=== PATIENT | female | born 1980 | race Two or more races ===

== ENCOUNTER 2023-11-28 10:04 | Outpatient (AMB) | payer MEDICAID, SELFPAY ==
--- NOTE | 2023-11-28 10:13 | A.OFFVIS_ITS ---
Intake Vital Signs 3 11/28/23 10:24 Height 4 ft 11 in Weight 205 lb BMI 41.4 BP 112/75 Blood Pressure Location Lt brachial Position Sitting Pulse 73 Intake Visit Reasons: skin lesion of the shoulder Intake Note: Patient is seen in office for evaluation and treatment of a skin lesion of the shoulder. Pt c/o: lesion on the right axilla, onset 10yrs, discharge in the past, currently is painful, hot to the touch, redness, currently not on antibiotics Enterprise Resource Planning Consultant Required: Yes Enterprise Resource Planning Consultant Language: Danish Allergies No Known Allergies Allergy (Verified 11/28/23 10:23) Medication List - Last Reconciled 11/28/23 by Braeden Powell MD Unobtainable HPI HPI Comments 2 History of Present Illness0 Details 43-year-old female patient presenting fo r evaluation of recurring infections in the right axilla. Patient's history was obtained from her who was present during the visit. He reports that she has had multiple procedures in the right axilla to drain infections in the ED. She is being followed by a quill machine tender but has not been placed on a biologic medication. She reports having used Hibiclens in the past and apparently is still using Hibiclens today but feels that this has not helped. She is requesting excision of the chronically infected area of hidradenitis. She denies any current infection does note discomfort in the axilla. [facility] Medical History (Updated 11/28/23 @ 10:57 by Braeden Powell MD) Fibromyalgia Vitamin D deficiency Hidradenitis axillaris Surgical History History of 3 sections Social History Alcohol intake: never Patient Tobacco Use Status: Current everyday Tobacco user Review of Systems Const All systems reviewed & are unremarkable except as noted in HPI and below Physical Exam Vital Signs: Last Vital Signs Pulse 73 11/28/23 10:24 BP 112/75 11/28/23 10:24 BMI result Body Mass Index 41.4 Const General: cooperative and no acute distress Nutritional Appearance: well nourished Orientation/consciousness: patient oriented x3 Limitations: no limitations HEENT Head: Yes normocephalic and Yes atraumatic Ears: hearing grossly normal bilaterally Chest Other: Right axilla with an area measuring approximately 2 by 4 cm of hidradenitis with chronic scarring but no evidence of acute abscess at this time. Site is tender to palpation. Several open sinuses are identified, located mainly in the anterior axilla. Chest/axillae images: 2 1. Site of chronic scarring, hidradenitis Resp Effort & Inspection: normal respiratory effort, no audible wheezes, no cough and no respiratory distress Cardio Jugular venous distension: no JVD GI Inspection: Yes normal to inspection Skin Other: Warm, dry, no rash Neuro General: patient oriented x3 Extrem Other: Swelling in right hand with slight erythema when compared to the left hand. Assessment & Plan Assessment & Plan (1) Hidradenitis axillaris: Code(s): L73.2 - Hidradenitis suppurativa Plan 43-year-old female patient presenting for evaluation of chronic right axillary hidradenitis with multiple previous drainage procedures. Patient is requesting excision of this area of chronic hidradenitis. We discussed the procedure in detail including the risks of nonhealing wound, persistent pain, and recurrent infections in other areas of the axilla. After discussion of the procedure, risks, and alternatives, she consents to an excision of the right axillary hidradenitis. This will be scheduled as a short-stay surgery. Coding Level of Care Code New Pt Level 4 (81391) Diagnoses Hidradenitis axillaris L73.2
[2023-11-28 10:24] VITALS: BP 112/75; PULSE 73; BMI 41.4
== END 2023-11-28 10:44 | disposition home or self-care (01) ==
PROVIDERS: PCP Physician Assistant Medical; Visit Provider Surgery
DX: L73.2 Hidradenitis suppurativa (principal)
CPT/HCPCS: 99204

== ENCOUNTER → 2023-11-28 10:04 | Outpatient (BNVA) | payer MEDICAID, SELFPAY | PROVIDERS: PCP Physician Assistant Medical; Visit Provider Surgery | DX: L73.2 Hidradenitis suppurativa (principal) | CPT/HCPCS: 99202 ==

== ENCOUNTER 2024-02-28 19:06 | Emergency (ER) | payer MEDICAID, SELFPAY ==
--- NOTE | ~2024-02-28 | CT_ITS ---
EXAMINATION: CT ABDOMEN AND PELVIS WITHOUT CONTRAST CLINICAL INFORMATION: Abdominal pain. Vomiting. COMPARISON: None available. TECHNIQUE: Multidetector volumetric imaging was performed from the superior aspect of the liver through the pubic symphysis. Sagittal and coronal reformatted images were obtained on the technologist's workstation. This CT examination was performed using dose optimization techniques as appropriate, variously including the following: *Automated exposure control *Adjustment of mA and/or kV according to patient size (this includes techniques or standardized protocols for targeted exams where dose is matched to indication/reason for exam; i.e. extremities or head) *Use of iterative reconstruction technique DLP: 692 mGy-cm FINDINGS: LUNG BASES: The visualized lung bases are unremarkable. LIVER, GALLBLADDER, AND BILIARY TREE: The liver is normal in size, shape, and attenuation. No focal hepatic lesion or biliary ductal dilatation is present. The gallbladder is physiologically distended. There is a punctate calculus layering dependently within the gallbladder. There is no gallbladder wall thickening or obvious pericholecystic inflammatory changes. PANCREAS: Unremarkable. SPLEEN: Unremarkable. ADRENAL GLANDS: Unremarkable. KIDNEYS AND URETERS: The kidneys are normal in size, shape, and attenuation. No hydronephrosis, hydroureter, or calculi seen. No perinephric stranding. BLADDER: Unremarkable. GASTROINTESTINAL TRACT: The small and large bowel are normal in caliber. There is no pericolonic inflammatory stranding or colonic wall thickening. The appendix is unremarkable. ABDOMINAL WALL: No significant hernia is appreciated. LYMPH NODES: No lymphadenopathy. VASCULAR: Unremarkable. PELVIC VISCERA: Unremarkable. No adnexal mass. OSSEOUS STRUCTURES: Unremarkable. CT/CT abdomen pelvis wo IV con IMPRESSION: No acute intra-abdominal/intrapelvic abnormality. Cholelithiasis. Fleischner guidelines were followed.
[2024-02-28 19:14] VITALS: BP 115/81; PULSE 73; RESP 20; TEMP 36.6; O2SAT 98; BMI 34.7
--- NOTE | 2024-02-28 19:51 | ED.ABDPAIN ---
HPI - Abdominal Pain General Chief Complaint: Abdominal Pain Stated Complaint: lower abd pain/headache Time Seen by Provider: 02/29/24 00:24 Related Data Home Medications ?Medication ?Instructions ?Recorded ?Confirmed Unobtainable 11/28/23 11/28/23 Allergies Allergy/AdvReac Type Severity Reaction Status Date / Time No Known Allergies Allergy Verified 02/28/24 19:20 [facility] Past Medical History Medical History (Updated 03/01/24 @ 12:45 by BEL Parsons) Fibromyalgia Vitamin D deficiency Hidradenitis axillaris Surgical History History of 3 sections Social History Social History Alcohol intake: never Patient Tobacco Use Status: Current everyday Tobacco user Advance Directives: No Advance Directives Information Provided: No Do you have a plan to hurt others: No Plan Physical Exam ED Vital Signs: Vital Signs - 24 hr 02/28/24 19:14 02/28/24 23:21 Temperature 97.8 F Pulse Rate 73 70 Respiratory Rate 20 16 Blood Pressure 115/81 118/75 Pulse Oximetry 98 96 Oxygen Delivery Method Room Air Room Air BMI result Body Mass Index 34.7 Course Course Course Narrative: This is a Rapid Medical Examination (RME) performed by Varun Powell PA-C in triage. Full HPI, ROS, assessment and treatment plan per primary provider in the Main ED. 44-year-old Kinyarwanda speaking female with a history of fibromyalgia, hidradenitis suppurativa who presents to the ER from urgent care for evaluation of abdominal pain, headache, nausea, and vomiting with every time she tries to have any p.o. intake. She reports the pain is in her lower abdomen. She reports also pain radiating to her back. On examination patient is awake, alert, no distress. speaking in complete sentences. abd is nondistended with Right upper quadrant tenderness on examination.No guarding or rebound. lower abdominal tenderness as well. Plan: Labs and CT scan Medical Decision Making Lab Data 02/28/24 19:56 02/28/24 19:56 Labs: Lab Results 02/28/24 Range/Units 19:56 WBC 9.5 (4.8-10.8) X10*3/uL RBC 4.76 (4.20-5.50) X10*6/uL Hgb 13.9 (12.0-16.0) g/dl Hct 40.7 (37.0-47.0) % MCV 85.5 (80.0-98.0) fL MCH 29.2 (27.0-33.0) pg MCHC 34.2 (31.0-35.0) g/dl RDW 13.3 (11.0-16.0) % Plt Count 334 (160-400) X10*3/uL MPV 9.2 L (9.4-12.3) fL Immature Gran % (Auto) 0.4 (0.0-0.4) % Neut % (Auto) 61.6 (45-73) % Lymph % (Auto) 27.7 (20-40) % White % (Auto) 8.2 (2-11) % Eos % (Auto) 1.5 (0-4) % Baso % (Auto) 0.6 (0-2) % Lymph # (Auto) 2.6 (1.2-4.9) X10*3/uL White # (Auto) 0.8 (0.1-1.2) X10*3/uL Eos # (Auto) 0.1 (0.0-0.4) X10*3/uL Baso # (Auto) 0.1 (0.0-0.2) X10*3/uL Abs Immat Gran (auto) 0.04 H (0.00-0.03) X10*3/uL Absolute Neuts (auto) 5.8 (2.0-8.3) x10*3/uL Absolute Nucleated RBC 0.000 (0.0-0.012) X10*3/uL Nucleated RBC % (auto) 0.0 (0.0-0.2) /100WBC Sodium 140 (135-145) mmol/L Potassium 4.0 (3.3-5.1) mmol/L Chloride 105 (96-108) mmol/L Carbon Dioxide 25 (22-29) mmol/L Anion Gap 14 (12-20) BUN 12 (9-16) mg/dL Creatinine 0.63 (0.5-1.4) mg/dL Estim Creat Clear Calc 132.8 Estimated GFR > 60 Random Glucose 76 (60-115) mg/dL Calcium 9.5 (8.4-10.2) mg/dL Magnesium 1.8 (1.6-2.6) mg/dL Total Bilirubin 0.3 (0.0-1.0) mg/dL Direct Bilirubin 0.1 (0.0-0.5) mg/dL AST 15 (5-31) U/L ALT 14 (0-31) U/L Alkaline Phosphatase 64 (39-117) U/L Total Protein 7.3 (6.5-8.0) g/dL Albumin 3.9 (3.5-5.0) g/dL Lipase 13 (8-78) U/L Beta HCG, Quant < 2 mIU/mL Discharge Plan Discharge Clinical Impression: Abdominal pain Patient Disposition: Left W/O Completing Treatment Prescriptions: No Action Unobtainable Discharge Date/Time: 02/29/24 00:33
[2024-02-28 19:59] LABS: MANUAL DIFF FLAG NO
[2024-02-28 20:01] LABS: Basophils Absolute Auto 0.1 X10*3/uL (0.0-0.2); Basophils Percent Auto 0.6 % (0-2); Eosinophils Absolute Auto 0.1 X10*3/uL (0.0-0.4); Eosinophils Percent Auto 1.5 % (0-4); Hematocrit 40.7 % (37.0-47.0); Hemoglobin 13.9 g/dl (12.0-16.0); Imm Gran Abs Auto 0.04 X10*3/uL (0.00-0.03); Imm Gran Pct Auto 0.4 % (0.0-0.4); Lymphocytes Absolute Auto 2.6 X10*3/uL (1.2-4.9); Lymphocytes Percent Auto 27.7 % (20-40); Mean Corpuscular HGB Conc 34.2 g/dl (31.0-35.0); Mean Corpuscular Hemoglobin 29.2 pg (27.0-33.0); Mean Corpuscular Volume 85.5 fL (80.0-98.0); Mean Platelet Volume 9.2 fL (9.4-12.3); Monocytes Absolute Auto 0.8 X10*3/uL (0.1-1.2); Monocytes Percent Auto 8.2 % (2-11); Neutrophils Absolute Auto 5.8 x10*3/uL (2.0-8.3); Neutrophils Percent Auto 61.6 % (45-73); Platelet Count 334 X10*3/uL (160-400); Red Blood Count 4.76 X10*6/uL (4.20-5.50); Red Cell Distribution Width 13.3 % (11.0-16.0); White Blood Count 9.5 X10*3/uL (4.8-10.8)
[2024-02-28 20:23] LABS: Alanine Aminotransferase 14 U/L (0-31); Albumin Level 3.9 g/dL (3.5-5.0); Alkaline Phosphatase 64 U/L (39-117); Anion Gap 14 (12-20); Aspartate Amino Transferase 15 U/L (5-31); Bilirubin Direct 0.1 mg/dL (0.0-0.5); Bilirubin Total 0.3 mg/dL (0.0-1.0); Blood Urea Nitrogen 12 mg/dL (9-16); Calcium 9.5 mg/dL (8.4-10.2); Carbon Dioxide 25 mmol/L (22-29); Chloride 105 mmol/L (96-108); Creatinine Clr Calc Pharmacy 132.8; Estimated Glomerular Filt Rate > 60; Glucose Random 76 mg/dL (60-115); Lipase 13 U/L (8-78); Magnesium 1.8 mg/dL (1.6-2.6); Sodium 140 mmol/L (135-145); Total Protein 7.3 g/dL (6.5-8.0)
[2024-02-28 20:29] LABS: HCG Quantitative < 2 mIU/mL
[2024-02-28 23:21] VITALS: BP 118/75; PULSE 70; RESP 16; O2SAT 96
== END 2024-02-29 00:33 | disposition left against medical advice (07) ==
PROVIDERS: Physician Assistant; Emergency Provider Emergency Medicine; PCP Nurse Practitioner Family
DX: R10.30 Lower abdominal pain, unspecified (principal); R51.9 Headache, unspecified; F17.200 Nicotine dependence, unspecified, uncomplicated
CPT/HCPCS: 36415; 74176; 80048; 80076; 83690; 83735; 84702; 85025; 99283; 99284

== ENCOUNTER 2025-01-27 15:28 | Outpatient (REF) | payer MEDICAID, SELFPAY ==
[2025-01-27 16:44] LABS: Urine Cytology See Pathology rpt
== END 2025-01-27 15:29 | disposition home or self-care (01) ==
LOC: HO.LNP 15:28
PROVIDERS: PCP Nurse Practitioner Family; Visit Provider Nurse Practitioner Family
DX: F17.200 Nicotine dependence, unspecified, uncomplicated (principal); R31.29 Other microscopic hematuria
CPT/HCPCS: 81003; 88112; 99212

== ENCOUNTER 2025-01-27 15:28 | Outpatient (AMB) | payer MEDICAID, SELFPAY ==
--- NOTE | 2025-01-27 15:30 | MHC.OFFVIS ---
Intake Visit Reasons: microscopic hematuria Intake Note: New patient presents today for initial visit for microscopic hematuria Urology Medication:None Blood Thinner:None Antibiotic Allergies:None Carroting Machine Operator Required: Yes Carroting Machine Operator Services: Carroting Machine Operator Present Allergies No Known Allergies Allergy (Verified 01/27/25 21:59) Medication List - Last Reconciled 01/27/25 by CARYN uBrch-HELEN meloxicam 15 mg PO DAILY PRN pantoprazole 40 mg PO DAILY spironolactone 25 mg PO DAILY zolpidem 10 mg PO BEDTIME PRN HPI Comments Details: Hend this is a very pleasant 45-year-old Polish speaking female patient of Dr. Sol who was accompanied by her at today's office visit. She has a past medical history of fibromyalgia, vitamin-D deficiency, and hidradenitis axillars. She presents to the office today as a new patient for microscopic hematuria in the setting of nicotine dependence. In discussion with the patient today she reports having followed up with her PCP at which time recommendations were made for urology referral for further assessment evaluation. In office urinalysis results reviewed with the patient today 2+ microscopic hematuria as well as proteinuria. She does report following up with Nephrology Dr. Craig. When asked she does report a 23 year history of nicotine dependence. She reports typically smoking half a pack daily. We discussed potential causes of microscopic hematuria as well as further workup to include imaging and cystoscopy. She otherwise denies any bothersome urinary issues. She denies urinary urgency, urinary frequency, incontinence, nocturia, hematuria, dysuria, foul smelling urine, changes to urinary stream, flank pain, fever, and or chills. She is happy with her current voiding parameters. In review of patient's chart it appears patient had CT 03/22 however noncontrasted study therefore will order CT urogram for further assessment evaluation. I discussed reasons for blood in the urine may include but are not limited to kidney stones, cancer in the urinary tract, kidney stone disease or inflammatory conditions of the urinary tract. I have discussed workup to include cystoscopy evaluation. All questions were answered. She otherwise offers no other issues or concerns at this time. [facility] Medical History Fibromyalgia Vitamin D deficiency Hidradenitis axillaris Surgical History History of 3 sections Social History Alcohol intake: never Patient Tobacco Use Status: Current everyday Tobacco user Review of Systems Const All systems reviewed & are unremarkable except as noted in HPI and below Physical Exam Const General: cooperative, comfortable, no acute distress, well developed, alert and awake Nutritional Appearance: overweight Orientation/consciousness: patient oriented x3 Limitations: language barrier HEENT Head: Yes normal to inspection Ears: hearing grossly normal bilaterally Eyes General: appearance normal, both eyes and all related structures Neck Neck: Yes normal visual inspection and Yes trachea midline Chest Chest palpation & inspection: normal inspection of the chest Resp Effort & Inspection: normal respiratory effort and able to speak in complete sentences Cardio Rate: regular rate GI Inspection: Yes normal to inspection General: Yes no CVA tenderness Back/Spine/Pelvis Back: no CVA tenderness Skin General skin exam: no rashes or lesions noted Neuro General: patient oriented x3 Extrem General: Yes normal to inspection Psych Appearance: grossly normal and well kempt Mental Status: mental status grossly normal Speech and movement: Normal speech and movement present and Clear speech present Affect: normal affect Attitude: cooperative Thought process: Normal thought process present Thought content: Normal thought content present Insight: Fair insight present (Psych) Judgement: Fair judgement present (Psych) Results AMB Urinalysis, Automated UA Leukoctes 0 Jane/uL Last Edit by Rupa Lee on 01/27/25 16:15 UA Nitrite Negative Last Edit by Rupa Lee on 01/27/25 16:15 UA Urobilinogen 0.2 mg/dL Last Edit by Rupa Lee on 01/27/25 16:15 UA Protein 100 mg/dL Last Edit by Rupa Lee on 01/27/25 16:15 UA pH 5.5 Last Edit by Rupa Lee on 01/27/25 16:15 UA Blood 200 Stefan/uL Last Edit by Rupa Lee on 01/27/25 16:15 UA Specific [place] 1.030 Last Edit by Rupa Lee on 01/27/25 16:15 UA Ketone Negative Last Edit by Rupa Lee on 01/27/25 16:15 UA Bilirubin 0 mg/dL Last Edit by Rupa Lee on 01/27/25 16:15 UA Glucose 0 mg/dL Last Edit by Rupa Lee on 01/27/25 16:15 Results Reviewed Results Reviewed: Laboratory Last Values Urine pH (Auto) 5.5 01/27/25 15:55 Specific [place] (Auto) 1.030 01/27/25 15:55 Urine Protein (Auto) 100 mg/dL 01/27/25 15:55 Glucose (UA)(Auto) 0 mg/dL 01/27/25 15:55 Urine Ketones (Auto) Negative 01/27/25 15:55 Urine Blood (Auto) 200 Stefan/uL 01/27/25 15:55 Urine Nitrite (Auto) Negative 01/27/25 15:55 Urine Bilirubin (Auto) 0 mg/dL 01/27/25 15:55 Urine Urobilinogen (Auto) 0.2 mg/dL 01/27/25 15:55 Leukocyte Esterase (Auto) 0 Jane/uL 01/27/25 15:55 Assessment & Plan Assessment & Plan (1) Microscopic hematuria: Code(s): R31.29 - Other microscopic hematuria Category: Medical (2) Nicotine dependence: Code(s): F17.200 - Nicotine dependence, unspecified, uncomplicated Category: Medical Plan In office urinalysis results reviewed with the patient today; as noted above; will send for urine cytology. She currently denies any bothersome urinary issues or concerns. She reports be happy with current voiding parameters. We discussed potential causes of microscopic hematuria as well as further workup to include imaging and cystoscopy. Will obtain CT urogram for further assessment evaluation. BUN and creatinine ordered for imaging. Discussed, educated, and stressed the importance of limiting/quitting nicotine dependence for overall health and well-being. Continue to follow-up with nephrology as planned. Follow-up next available in office cystoscopy with imaging and labs to be completed prior; or sooner with any issues, concerns, and or questions. Orders: Orders AMB Urinalysis Automated Today Z13.9 - Encounter for screening, unspecified Blood Urea Nitrogen Today F17.200 - Nicotine dependence, unspecified, uncomplicated, R31.29 - Other microscopic hematuria Urine Cytology Today Z13.9 - Encounter for screening, unspecified CT urogram Today R31.0 - Gross hematuria Creatinine Today F17.200 - Nicotine dependence, unspecified, uncomplicated, R31.29 - Other microscopic hematuria Patient Instructions: The patient had an opportunity to ask questions regarding the treatment plan. All questions were answered. Physical exam, labs, and imaging were discussed and reviewed in detail. As well as risks, benefits, and discussion of treatment choices. No major barriers to understanding were identified. The patient expressed understanding and agreement with the above treatment plan. The patient was made aware they should contact our office by phone for worsening of their current condition, the appearance of new symptoms, or with any questions or concerns. Compliance is encouraged with any medications and follow up testing that is ordered. It is a privilege to be allowed the opportunity to participate in? your urological care.? Again, if you have any questions or concerns If you have any questions or concerns please do not hesitate to contact me. The office is [phone]. This note is constructed using voice recognition software. While every effort has been made to ensure accuracy animal keeper errors may have been included. Yours sincerely, POWER Burch Coding Level of Care Code New Pt Level 4 (80431) Diagnoses Microscopic hematuria R31.29 Nicotine dependence F17.200 Time Spent (min) 30
--- OUTSIDE RECORDS SUMMARY | 2025-01-27 17:13 | XMS_ITS | Encounter Summary ---
Author Organization [facility] Address [address] [address] Phone Care Team Providers Care Dependency Director Name Role Phone Yoan Sol Primary Care Provider [phone] Encounter Details Date Type Department Care Team ([facility] Contact Info) Description 07/03/2022 Documentation Only [facility] [address] [place] [address] Heber Tang MD [address] [facility] [place] [place] [address] Social History Tobacco Use Types Packs/Day Years Used Date Smoking Tobacco: Every Day Smokeless Tobacco: Never Alcohol Use Standard Drinks/Week Comments Not Currently 0 (1 standard drink = 0.6 oz pur e alcohol) Comments Unknown Sex and Gender Information Value Date Recorded Sex Assigned at Not on file Legal Sex Female 3:39 PM EDT Gender Identity Not on file Sexual Orientation Not on file documented as of this encounter Plan of Treatment Upcoming Encounters Date Type Department Care Team (Late Contact Info) Description 01/20/2026 1:45 PM EDT Office Visit [facility] [address] [place] [address] Heber Tang MD [address] [facility] [place] [place] [address] documented as of this encounter Visit Diagnoses Not on filedocumented in this encounter Care Teams Dependency Director Relationship Specialty Start Date End Date Yoan Sol FNP [address] [place] [address] PCP - General Nurse Practitioner 01/10/21 documented as of this encounter
--- OUTSIDE RECORDS SUMMARY | 2025-01-27 17:13 | XMS_ITS | Clinical Summary ---
Author Organization [facility] [place], Address [address] [place] [address] [place] [address] Phone Care Team Providers Care Director Day Care Center Name Role Phone Yoan Sol ELECTRIC SHIPYARD OPERATOR Primary Care Provider [phone] [phone] Allergies Active Allergy Reactions Criticality Noted Date Comments Lisinopril Other (see comments) 02/05/2021 Medications acetaminophen (TYLENOL) 500 MG tablet Take 500 mg by mouth every 6 (six) hours 1 Active cholecalciferol (VITAMIN D-3) 25 MCG (1000 UT) capsule Take 2 capsules by mouth 1 (one) time each day 1 Active gabapentin (NEURONTIN) 300 MG capsule Take 300 mg by mouth 2 (two) times a day 1 Active nicotine polacrilex (COMMIT) 4 MG lozenge Use one by mouth every 2 hours as needed for smoking cessation 1 Active mupirocin (BACTROBAN) 2 % ointment 1 Active ketoconazole (NIZORAL) 2 % shampoo 1 Active hydrocortisone 2.5 % cream 1 Active doxycycline (ADOXA) 100 MG tablet 1 Active Ciclopirox 1 % shampoo 1 Active Hibiclens 4 % external liquid 1 Active amoxicillin-cla vulanate (AUGMENTIN) 875-125 MG per tablet 1 Active ammonium lactate (LAC-HYDRIN) 12 % lotion 1 Active clobetasol (TEMOVATE) 0.05 % cream Apply topically 2 (two) times a day 2 Active Diclofenac Sodium 1 % gel APPLY TO AFFECTED AREA TWICE A DAY 2 Active spironolactone (Aldactone) 50 MG tablet Take 0.5 tablets (25 mg total) by mouth 1 (one) time each day 15 tablet 11 4 Active Active Problems Problem Noted Date Diagnosed Date Proteinuria 02/24/2021 Anemia 02/24/2021 Fibromyalgia 01/05/2021 Vitamin D deficiency 11/29/2020 Encounters Date Type Department Care Team Description 01/14/2025 1:45 PM EDT Office Visit [facility] [address] [place] [address] Heber Tang MD Other proteinuria (Primary Dx) 01/11/2025 Telephone [facility] [address] [place] [address] Patsy Saab MA 01/07/2025 Orders Only [facility] [address] [place] [address] Patsy Saab MA Chronic kidney disease, not otherwise specified (Primary Dx); Albuminuria, not otherwise specified from Last 3 Months Immunizations Immunization Administration Dates Next Due PPD Test 08/18/2017 Tdap 03/15/2016 Family History Medical History Relation Comments Diabetes Father Heart failure Maternal Grandmother Heart disease Mother Relation Status Comments Father Maternal Grandmother Mother Social History Tobacco Use Types Packs/Day Years [...] on file Sexual Orientation Not on file Last Filed Vital Signs Vital Sign Reading Time Taken Comments Blood Pressure 108/74 01/14/2025 1:49 PM EDT Pulse - - Temperature - - Respiratory Rate - - Oxygen Saturation - - Inhaled Oxygen Concentration - - Weight - - Height - - Body Mass Index - - Plan of Treatment Upcoming Encounters Date Type Department Care Team (Late st Contact Info) Description 01/20/2026 1:45 PM EDT Office Visit [facility] [place], [address] [facility] [phone] Heber Tang MD [address] [facility] [place] [phone] Health Maintenance Due Date Last Done Comments Hepatitis B Vaccine (1 of 3 - 19+ 3-dose series) 1998 Pneumococcal Vaccine: Peds ( 0 to 5 Years) and At-Risk Patients (6 to 49 Years) (2 of 2 - PCV) 12/12/2019 12/11/2018 Influenza Vaccine (Season Ended) 2025 08/27/20 22, 12/11/2018 Insurance Medicaid [place] Care Teams Director Day Care Center Relationship Specialty Start Date End Date Yoan Sol FNP [address] [place] [address] PCP - General Nurse Practitioner 01/10/21
--- OUTSIDE RECORDS SUMMARY | 2025-01-27 17:13 | XMS_ITS | Encounter Summary ---
Author Organization [facility] Address [address] [place] [address] Phone Care Team Providers Care Nurse Behavioral Health Care Name Role Phone Yoan Sol Primary Care Provider [phone] Encounter Details Date Type Department Care Team (Late Contact Info) Description 12/01/2023 Documentation Only [facility] [address] [place] [address] [place] [address] Social History Tobacco Use Types Packs/Day Years [...] Visit [facility] [address] [place] [address] Heber Tang MD [address] [facility] [place] [address] documented as of this encounter Visit Diagnoses Not on filedocumented in this encounter Care Teams Nurse Behavioral Health Care Relationship Specialty Start Date End Date Yoan Sol FNP [address] [place] [id number] PCP - General Nurse Practitioner 01/10/21 documented as of this encounter
--- OUTSIDE RECORDS SUMMARY | 2025-01-27 17:13 | XMS_ITS | Clinical Summary ---
Author Organization [facility] Address [address] [place] [address] Care Team Providers Care Legal Services Manager Name Role Phone Yoan Sol [facility] Primary Care Prov ider Source Comments PLEASE NOTE, if this patient is a minor, it may be UNLAWFUL to discuss sensitive information that is contained in these records (such as FAMILY PLANNING, MENTAL HEALTH or SUBSTANCE ABUSE) with the minor patient's parent or other person without the patient's specific authorization.[facility] Allergies Active Allergy Reactions Criticality Noted Date Comments Lisinopril Cough 02/05/2021 Medications acetaminophen (TYLENOL) 500 mg tabletIndications: Apical periodontitis Take 1 Tablet by mouth every 6 (six) hours as needed for pain 60 Tablet 2 08/27/20 22 Active zolpidem (AMBIEN) 10 mg tablet TAKE 1 TABLET BY MOUTH EVERY DAY AT BEDTIME NEEDED 03/03/20 23 Active traZODone (DESYREL) 100 mg tablet TAKE 1 TABLET BY MOUTH EVERYDAY AT BEDTIME 03/08/20 23 Active DULoxetine (CYMBALTA) [address] capsule TAKE 1 CAPSULE BY MOUTH AFTER BREAKFAST 03/25/20 23 Active celecoxib (CELEBREX) 200 mg capsuleIndications :Bilateral hand swelling Take 1 Capsule by mouth 2 (two) times daily 180 Capsule 11/11/19 24 Active spironolactone (ALDACTONE) 50 mg tablet Take 25 mg by mouth 12/31/19 24 Active amitriptyline (ELAVIL) 25 mg tablet Take 25 mg by mouth nightly at bedtime as needed for pain 10/23/19 24 Active topiramate (TOPAMAX) 50 mg tablet Take 50 mg by mouth 2 (two) times daily as needed 09/24/20 23 Active nicotine (NICODERM, STEP 3) 7 mg/24 hr patchIndications:T obacco use Place 1 Patch onto the skin once daily (every 24 hours) 14 Patch 02/03/20 24 Active nicotine (NICODERM, STEP 2) 14 mg/24 hr patchIndications:T obacco use Place 1 Patch onto the skin once daily (every 24 hours) 14 Patch 02/03/20 24 Active nicotine (NICODERM, STEP 1) 21 mg/24 hr patchIndications:T obacco use Place 1 Patch onto the skin once daily (every 24 hours) 42 Patch 02/03/20 24 Active MISCELLANEOUS MEDICAL SUPPLY MISC Knee high compression stockings 15-20mm Hg to be used daily x 99 years dispense 2 pairs 3 Each 02/03/20 24 Active MISCELLANEOUS MEDICAL SUPPLY MISCIndications:Bi lateral carpal tunnel syndrome Bilateral wrist brace DXcarpal tunnel 2 Each 02/03/20 24 Active ondansetron ODT (ZOFRAN-ODT) 4 mg disintegrating tablet DISSOLVE 1 TABLET IN MOUTH EVERY 8 HOURS NEEDED FOR NAUSEA/VOMITING FOR UP TO 10 DAYS Authorized by: DAMARIS CAMPBELL 03/03/20 24 Active lidocaine (LIDODERM) 5 % patch APPLY 1 PATCH DAILY X14 DAYS REMOVE PATCHES AFTER 12 HOURS Authorized by: DAMARIS CAMPBELL 02/06/20 24 Active fluocinonide (LIDEX) 0.05 % cream APPLY TO HANDS TWICE A DAY NEEDED DECREASE SYMPTOMS IMPROVE 15 g 1 03/15/20 24 Active mupirocin (BACTROBAN) 2 % ointmentIndication s:Skin infection Apply 1 Application topically 3 (three) times daily 22 g 05/18/20 24 Active cyclobenzaprine (FLEXERIL) 10 mg tablet TAKE 1 TABLET BY MOUTH THREE TIMES A DAY 30 Tablet 1 10/26/19 25 Active doxycycline (VIBRA-TABS) 100 mg tabletIndications: Hidradenitis axillaris TAKE 1 TABLET BY MOUTH TWICE A DAY FOR ONE WEEK AND THEN ONCE DAILY THEREAFTER 60 Tablet 1 10/26/19 25 Active ergocalciferol (VITAMIN D-2) 1,250 mcg (50,000 unit) capsule Take 1 Capsule by mouth once a week 12 Capsule 3 10/26/19 25 Active meloxicam (MOBIC) 15 mg tablet TAKE 1 TABLET BY MOUTH EVERY DAY WITH FOOD NEEDED for pain 30 Tablet 4 10/26/19 25 Active gabapentin (NEURONTIN) 300 mg capsuleIndications :Bilateral carpal tunnel syndrome,Left sided sciatica Take 1 Capsule by mouth 2 (two) times daily 180 Capsule 1 10/26/19 25 Active pantoprazole (PROTONIX) 40 mg EC tablet Take 1 Tablet by mouth once daily 90 Tablet 01/04/20 25 Active pantoprazole (PROTONIX) 40 mg EC tablet 1 TABLET BY MOUTH TWICE A DAY FOR 14 DAYS Authorized by: DAMARIS CAMPBELL 03/03/20 24 025 Discontin ued(Reord er (E-Cancel Not Sent)) Active Problems Problem Noted Date Diagnosed Date Bulging lumbar disc 10/26/2024 TB lung, latent 04/07/2024 Overview (04/07/2024): February 2024: She said she received the treatment before 2 time and it did not work for her situation it become worse and the doctor stopped it. And she does not want to be referred. Thank you Class 3 severe obesity due t o excess calories without serious comorbidity with body mass index (BMI) of 40.0 to 44.9 in adult ([facility]) 02/03/2024 Tobacco use 02/03/2024 Abnormal mammogram 11/12/2022 Overview (11/12/2022): Needs follow up April 2023 at [facility], [facility] 3 left breast Hyperlipidemia 11/12/2022 Bilateral carpal tunnel syndrome 01/28/2022 Overview (01/28/2022): [facility] 01/07/22 This is an abnormal EMG. This study shows evidence of bilateral mild distal median neuropathies localized at or distal to the wrist as primarily demyelinating in nature involving just the sensory fibers. This is compatible with carpal tunnel syndrome. Hidradenitis axillaris 01/28/2022 Proteinuria 02/24/2021 Fibromyalgia 01/05/2021 Vitamin D deficiency 11/29/2020 PPD positive, treated 2015 Overview (01/05/2021): Negative cxr November 2020 Encounters Date Type Department Care Team Description 01/18/2025 3:40 PM EDT Office Visit [facility] [address] [place] [phone] Eliseo Roy RHD Encounter for dental examination (Primary Dx); Caries; Periodontal disease 12/27/2024 3:00 PM EDT Office Visit [facility] [address] [place] [phone] FormisanoMarifer DO Pelvic pain (Primary Dx) 11/05/2024 Interim Notes [address] [phone] Cappas Carmen 11/03/2024 Interim Notes [address] [phone] Alicia Darling from Last 3 Months Immunizations Immunization Administration Dates Next Due Flu, Cell Culture based, Pre servative Free, 6m+, Flucelvax 12/11/2018 Flu, Preservative Free 08/27/2022 INFLUENZA, SEASONAL, INJECTABLE 07/06/2013,10/22 PNEUMOCOCCAL POLYSACCHARIDE PPV23 (Pneumovax 23) 12/11/2018,03/15/2016(Deferred: Out of Stock) PPD 08/18/2017 TDAP 03/15/2016,08/17/2013,10/20/2012 Family History Medical History Relation Name Comments Heart Problems Father Heart Problems Mother Hypertension Mother Relation Name Status Comments Father Mother Alive Social History Tobacco Use Types Packs/Day Years Used Date Smoking Tobacco: Every Day Cigarettes Smokeless Tobacco: Never Tobacco Cessation:Ready to Q uit: Not Asked; Counseling Given: Not Answered Alcohol Use Standard Drinks/Week Comments No 0 (1 standard drink = 0.6 oz pur e alcohol) Social Connections Answer Date Recorded Connectedness 1 11/10/2024 Financial Resource Strain Answer Date R ecorded Financial Resource Strain 1 2024 Stress Answer Date Recorded Stress 1 11/10/2024 Physical Activity Answer Date Recorded Physical Activity 0 05/22/2019 Food Insecurity Answer Date Recorded Food 1 11/10/2024 Transportation Needs Answer Date Record ed Transportation 1 11/10/2024 Housing Stability Answer Date Recorded Housing 1 11/10/2024 Safety and Environment Answer Date Wan rded Safety 1 02/03/2024 Utilities Answer Date Recorded Utilities 1 11/10/2024 Employment Answer Date Recorded Employment 0 05/22/2019 Comments No Sex and Gender Information Value Date Recorded Sex Assigned at Female 08/18/2017 10:06 AM PST Legal Sex Female 11:36 AM PDT Gender Identity Female 08/18/2017 10:06 AM PST Sexual Orientation Don't know 08/18/2017 10 :06 AM PST Last Filed Vital Signs Vital Sign Reading Time Taken Comments Blood Pressure 118/81 12/27/2024 3:09 PM EDT Pulse 87 12/27/2024 3:09 PM EDT Temperature 36.6 ??C (97.9 ??F) 10/26/2024 2:12 PM ES T Respiratory Rate 16 12/27/2024 3:09 PM EDT Oxygen Saturation 100% 12/27/2024 3:09 PM EDT Inhaled Oxygen Concentration - - Weight 93.7 kg (206 lb 9.6 oz) 10/26/2024 2:12 P M EST Height 149.9 cm (4' 11 ) 12/27/2024 3:09 PM EDT Body Mass Index 41.73 10/26/2024 2:12 PM EST Plan of Treatment Upcoming Encounters Date Type Department Care Team (Late st Contact Info) Description 02/17/2025 4:20 PM EDT Office Visit [facility] [address] [place] [phone] Marifer Dinh DO [address] [place] [address] Lorenzo Lindquist [address] [place] [address] 03/03/2025 3:00 PM EDT Office Visit [facility] [id number] [place] [phone] Corina Miller, DMD [address] [place] [address] 03/22/2025 4:00 PM EDT Office Visit [facility] [address] [place] [phone] Liss Sandoval, DDS [address] [place] [address] Health Maintenance Due Date Last Done Comments Anxiety Screening 1979 HPV Screening 1979 Imm-Hepatitis B (1 of 3 - 19 + 3-dose series) 1998 Imm-Pneumococcal (2 of 2 - PCV) 12/12/2019 9 Breast Cancer Screening (Mammogram) 03/18/2023 09/17/2022, 09/17/2022, 09/17/2022, Additional history exists CT Colonography 01/10/2024 Colonoscopy 01/10/2024 Colorectal Cancer Screening 01/10/2024 FIT/gFOBT 01/10/2024 Fecal DNA 01/10/2024 Flexible Sigmoidoscopy 01/10/2024 [id number] ( season) 2024 022, 08/17/2021 Imm-Influenza (#1) 2024 08/27/2022, 0 12/11/2018, 07/06/2013, Additional history exists Annual Preventive Care Visit 02/02/202503/2024, 08/27/2022, 01/05/2021, Additional history exists Relationship Safety Screening/Counseling 02/02/2025 02/03/2024, 01/28/2022, 11/27/2020 Tobacco Cessation Counseling (#1) 03/19/2025 08/27/2022, 01/28/2022, 08/08/2021, Additional history exists Diabetes Screening 10/26/2025 10/26/2024, 0 02/03/2024, 02/03/2024, Additional history exists Hypertension Screening (#1) 12/27/2025 Dental BW 01/20/2026 01/18/2025, 05/2 11/2022, 08/20/2022, Additional history exists Dental Examination 01/20/2026 01/18/2025, 0 02/18/2023, 08/20/2022, Additional history exists Dental Perio Charting 01/20/2026 01/18/2025, 023 Dental Prophy 01/20/2026 01/18/2025, 01/28, 08/20/2022, Additional history exists Imm-DTaP/Tdap/Td (4 - Td or Tdap) 03/15/2026 03/15/2016, 08/17/2013, 10/20/2012 Cervical Cancer Screening 03/20/2026 Pap + HPV 03/20/2026 03/20/2021, 05/01/2015 Pap Smear 03/20/2026 03/20/2021, 02/28, 05/01/2015, Additional history exists Lipid Screening 02/02/2027 02/03/2024, 07/0 01/2023, 08/30/2022, Additional history exists Dental FMX/Pano 01/20/2030 01/18/2025, 03/11/2023 HIV Screening Completed 11/28/2020 Hepatitis C Screening Completed 11/28/2020 Alcohol and Drug Screen Completed 10/26/19, 02/03/2024, 11/12/2022, Additional history exists Depression Annual Screen Completed 10/26/2024 Cervical Ablation/Cold-Knife Conization Discontinued Cervical Cryotherapy Discontinued Colposcopy Discontinued Endometrial Biopsy Discontinued Excision/Leep Discontinued HPV Genotyping Discontinued Vaginal Pap Discontinued Vulvoscopy Discontinued Procedures Procedure Name Priority Date/Time Associated Diagnosis Comments PERIODIC ORAL EVALUATION ESTABLISHED PATIENT Routine 01/18/2025 3:40 PM EDT Caries Encounter for dental examination DENTAL CASE MANAGEMENT - MOTIVATIONAL INTV Routine 01/18/2025 3:40 PM EDT Caries Encounter for dental examination PROPHYLAXIS - ADULT Routine 01/18/2025 3 :40 PM EDT Caries Encounter for dental examination COMP PERIODONTAL EVALUATION - NEW/EST PATIENT Routine 01/18/2025 3:40 PM EDT Caries Encounter for dental examination INTRAORAL - COMP SERIES OF RADIOGRAPHIC IMAGES Routine 01/18/2025 3:40 PM EDT Caries Encounter for dental examination CARIES RISK ASSESSMENT & DOC FINDING HIGH RISK Routine 01/18/2025 3:40 PM EDT Caries Encounter for dental examination NUTRITIONAL COUNSELING CONTROL OF DENTAL DISEASE Routine 01/18/2025 3:40 PM EDT Caries Encounter for dental examination ORAL HYGIENE INSTRUCTIONS Routine 01/18/2025 3:40 PM EDT Caries Encounter for dental examination ORAL CANCER SCREENING Routine 01/18/2025 3:40 PM EDT Caries Encounter for dental examination CASE PRESENTATION SUBS DTL & EXTENSIVE TX PLN Routine 01/18/2025 3:40 PM EDT Encounter for dental examination HEALTH HISTORY SCANNED DOCUMENT 11/03/2024 3:00 AM EST HEMOGLOBIN GLYCOSYLATED A1C Routine 10/26/2024 3:10 PM EST Prediabetes LIPID PANEL Routine 02/03/2024 2:19 PM EDT Examination, medical, general REFERRAL FOR MAMMOGRAM Routine 09/17/2022 3:00 AM EST Examination, medical, general THIN PREP IMAGE PAP + HPV RNA E6/E7 W/RFLX HPV 16, 18/45 Routine 03/20/2021 2:42 PM EDT Cervical cancer screening ANTIBODY HIV-1&HIV-2 SINGLE RESULT Routine 11/28/2020 2:01 PM EST Proteinuria, unspecified type Hair loss Rash HEPATITIS C ANTIBODY Routine 11/28/2020 2:01 PM EST Proteinuria, unspecified type from Last 3 Months or Most Recently Relevant to Health Maintenance Results * HEALTH HISTORY SCANNED DOCUMENT (11/03/2024 3:00 AM EST) 11/03/2024 3:00 AM EST [facility] Provider Default SCAN OTHER ORDERS Final Re sult * (ABNORMAL) HEMOGLOBIN GLYCOSYLATED A1C (10/26/2024 3:10 PM EST) HEMOGLOBIN A1C 5.9(H) <5.7 % of total Hgb [employer] Comment: For someone without known diabetes, a hemoglobin A1c value between 5.7% and 6.4% is consistent with prediabetes and should be confirmed with a follow-up test. For someone with known diabetes, a value <7% indicates that their diabetes is well controlled. A1c targets should be individualized based on duration of diabetes, age, comorbid conditions, and other considerations. This assay result is consistent with an increased risk of diabetes. Currently, no consensus exists regarding use of hemoglobin A1c for diagnosis of diabetes for children. Blood Blood / Unknown 10/26/2024 3 :10 PM EST 10/26/2024 3:10 PM EST Narrative [facility] [employer] - 10/27/2024 3:09 AM EST PATIENT UNABLE TO VOID; ADVISED TO RETURN FOR COLLECTION. Yoan Sol [facility] - BLOOD DRAW F inal Result Red [facility] [address] [address], [place] [address] [address] * (ABNORMAL) LIPID PANEL (02/03/2024 2:19 PM EDT) [facility] CHOLESTEROL, TOTAL 219(H) <200 mg/dL [facility] HDL CHOLESTEROL 38(L) > OR = 50 mg/dL [employer] TRIGLYCERIDES 217(H) <150 mg/dL [facility] [facility] Comment: If a non-fasting specimen was collected, consider repeat triglyceride testing on a fasting specimen if clinically indicated. Gerard et al. J. of Clin. Lipidol. 2015;9:129-169. LDL-CHOLESTEROL 145(H) 99 mg/dL (calc) [place] [facility] Comment: Reference range: <100 Desirable range <100 mg/dL for primary prevention; ?? <70 mg/dL for patients with CHD or diabetic patients with > or = 2 CHD risk factors. LDL-C is now calculated using the Chin-Melly calculation, which is a validated novel method providing better accuracy than the Friedewald equation in the estimation of LDL-C. Chin SS et al. JORGE. 2013;310(19): 0256-7563 (http://education.ShutterCal/faq/VKT012) CHOL/HDLC RATIO 5.8(H) <5.0 (calc) [facility] NON-HDL CHOLESTEROL 181(H) <130 mg/dL (calc) [facility] Comment: For patients with diabetes plus 1 major ASCVD risk factor, treating to a non-HDL-C goal of <100 mg/dL (LDL-C of <70 mg/dL) is considered a therapeutic option. Blood Blood / Unknown 02/03/2024 2 :19 PM EDT 02/03/2024 2:20 PM EDT us Yoan [facility] - BLOOD DRAW F inal Result Red [facility] [address] [place] [id number], [employer] [place] [employer] [address] [place] [phone] * (ABNORMAL) REFERRAL FOR MAMMOGRAM (09/17/2022 3:00 AM EST) 09/17/2022 3:00 AM EST us Yoan Sol [facility] IMG RFL MAMMO Ed ited Result - Final * THIN PREP IMAGE PAP + HPV RNA E6/E7 W/RFLX HPV 16, 18/45 (03/20/2021 2:42 PM EDT) CLINICAL INFORMATION See Note [facility] Comment:Routine exam LMP See Note [facility] Comment:[id number] PREV. PAP [facility] PREV. BX See Note [facility] Comment:NONE GIVEN SOURCE See Note [employer] Comment:Cervix STATEMENT OF ADEQUACY See Note [employer] Comment: Satisfactory for evaluation. Endocervical/transformation zone component absent. INTERPRETATION/RESU LT See Note [employer] Comment:Negative for intraep ithelial lesion or malignancy. INFECTION See Note [facility] Comment: Shift in vaginal maricel suggestive of bacterial vaginosis. COMMENT See Note [facility] Comment: This Pap test has been evaluated with computer assisted technology. UNIVERSITY ARCHIVIST See Note [employer] Comment: BLC,CT(ASCP) CT screening location: [address] ??[address] COMMENT [employer] HPV MRNA E6/E7 Not Detected Not Detected [employer] Comment: Methodology: Senior Copywriter-Mediated Amplification This assay detects E6/E7 viral messenger RNA (mRNA) from 14 high-risk HPV types (16,18,31,33,35,39,45,51,52,56,58,59,66,68). The analytical performance characteristics of this assay have been determined by [employer]. The modifications have not been cleared or approved by the FDA. This assay has been validated pursuant to the CLIA regulations and is used for clinical purposes. For additional information, please refer to http://education.LVL6/faq/VRH823h5 (This link if provided for information/ educational purposes only.) Cervix Cervix uteri structure / Unknown 03/20/2021 2:42 PM EDT 03/21/2021 3:20 AM EDT Narrative [facility] - 03/21/2021 7:19 PM EDT EXPLANATORY NOTE: The Pap is a screening test for cervical cancer. It is not a diagnostic test and is subject to false negative and false positive results. It is most reliable when a satisfactory sample, regularly obtained, is submitted with relevant clinical findings and history, and when the Pap result is evaluated along with historic and current clinical information. Shabana Inman [facility] - NO BLOOD DRAW Edited R esult - Final [employer] [address] [address], [employer] [address] [address] * HEPATITIS C ANTIBODY (11/28/2020 2:01 PM EST) HEPATITIS C VIRUS SCREEN NEGATIVE NEGATIVE [facility] Blood Blood / Unknown 11/28/2020 2 :01 PM EST 11/28/2020 6:53 PM EST Narrative [facility] - 11/28/2020 8:33 PM EST [email or web address], [place] [address] Electrical [place] [id number] ORD# [id number] Yoan Yeagerourt [facility] - BLOOD DRAW E dited Result - Final Performing Organization Address [facility]/ZIP Co de Phone Number [address] [address], [place] [phone] * HIV-1 & HIV-2 ANTIBODIES (11/28/2020 2:01 PM EST) [facility] HIV 1 AND 2 ANTIBODY SCREEN NEGATIVE NEGATIVE [facility] Comment: This assay is a 4th generation assay allowing for earlier detection of HIV infection by detecting the presence of the HIV-1 p24 antigen as well as the traditional antibodies to HIV type 1 (including group O) and type 2. ??Use of a 4th generation assay is the current CDC recommendation for HIV screening. Blood Blood / Unknown 11/28/2020 2 :01 PM EST 11/28/2020 6:53 PM EST Narrative [facility] - 11/28/2020 8:34 PM EST [email or web address], a member of [address] [address] Electrical Drafter [place] [id number] ORD# [id number] Yoan Sol [facility] - BLOOD DRAW E dited Result - Final Performing Organization Address [facility] Co de Phone Number [address] [address], [place] [phone] from Last 3 Months or Most Recently Relevant to Health Maintenance Insurance [place] MEDICAID DENTAL [facility] NET DENT[facility] [address] [employer] Care Teams Legal Services Manager Relationship Specialty Start Date End Date Yoan Sol FNP [address] [place] [address] PCP - General Family Medicine, ELECTROENCEPHALOGRAPHIC TECHNICIAN 01/05/21
== END 2025-01-27 16:16 | disposition home or self-care (01) ==
LOC: HO.HUSH 15:29
PROVIDERS: PCP Nurse Practitioner Family; Visit Provider Nurse Practitioner Family
DX: R31.29 Other microscopic hematuria (principal); F17.200 Nicotine dependence, unspecified, uncomplicated; Z13.9 Encounter for screening, unspecified
CPT/HCPCS: 99204

== ENCOUNTER 2025-03-14 15:18 | Outpatient (REF) | payer MEDICAID, SELFPAY ==
--- NOTE | ~2025-03-14 | CT_ITS ---
EXAMINATION: CT ABDOMEN AND PELVIS WITHOUT AND WITH CONTRAST CLINICAL INFORMATION: Gross hematuria DLP: 1041 mGY*cm COMPARISON: February 28, 2024 TECHNIQUE: Noncontrast CT of the abdomen and pelvis is performed followed by split bolus contrast-enhanced images using 85 mL Omnipaque 350 contrast. Postcontrast imaging is performed during the combined nephrogram and excretion phase. Sagittal and coronal reformatted images were obtained on the technologist's workstation for both the precontrast and postcontrast phases. This CT examination was performed using dose optimization techniques as appropriate, variously including the following: *Automated exposure control *Adjustment of mA and/or kV according to patient size (this includes techniques or standardized protocols for targeted exams where dose is matched to indication/reason for exam; i.e. extremities or head) *Use of iterative reconstruction technique FINDINGS: LUNG BASES: The visualized lung bases are unremarkable. LIVER, GALLBLADDER, AND BILIARY TREE: Mild fatty changes are present. Gallbladder is surgically absent. There are cholecystectomy clips. PANCREAS: Unremarkable. SPLEEN: Unremarkable. ADRENAL GLANDS: Unremarkable. KIDNEYS AND URETERS: The kidneys are normal in size, shape, and attenuation. No hydronephrosis, hydroureter, or calculi seen. No perinephric stranding. There is symmetric concentration and excretion of contrast from both kidneys and ureters. BLADDER: Contrast is visualized in the bladder. GASTROINTESTINAL TRACT: The small and large bowel are unremarkable. The appendix is unremarkable. ABDOMINAL WALL: Fat-containing umbilical hernia is present. LYMPH NODES: Normal. VASCULAR: Minimal atherosclerotic calcification is noted in the distal abdominal aorta, common iliac and common femoral arteries. PELVIC VISCERA: There is no residual unremarkable. OSSEUS STRUCTURES: Unremarkable. CT/CT urogram IMPRESSION: Unremarkable CT urogram. Cholecystectomy. Electronically signed by: Faheem Ferris MD 03/14/2025 05:50 PM EDT
--- OUTSIDE RECORDS SUMMARY | 2025-03-14 17:12 | XMS_ITS | Clinical Summary ---
Author Organization [facility], Address [address] [place] [address] [place] [address] Phone Care Team Providers Care Solid Waste Manager Name Role Phone Yoan Sol TOOL PLANER SET UP OPERATOR Primary Care Provider [phone] Allergies Active Allergy Reactions Criticality Noted Date Comments Lisinopril Other (see comments) 02/05/2021 Medications acetaminophen (TYLENOL) 500 MG tablet Take 500 mg by mouth every 6 (six) hours 02/06/20 21 Active cholecalcifero l (VITAMIN D-3) 25 MCG (1000 UT) capsule Take 2 capsules by mouth 1 (one) time each day 01/06/20 21 Active gabapentin (NEURONTIN) 300 MG capsule Take 300 mg by mouth 2 (two) times a day 01/06/20 21 Active nicotine polacrilex (COMMIT) 4 MG lozenge Use one by mouth every 2 hours as needed for smoking cessation 11/28/19 21 Active mupirocin (BACTROBAN) 2 % ointment 08/08/20 21 Active ketoconazole (NIZORAL) 2 % shampoo 08/28/20 21 Active hydrocortisone 2.5 % cream 08/13/20 21 Active doxycycline (ADOXA) 100 MG tablet 09/09/20 21 Active Ciclopirox 1 % shampoo 08/30/20 21 Active Hibiclens 4 % external liquid 08/13/20 21 Active amoxicillin-cl avulanate (AUGMENTIN) 875-125 MG per tablet 08/08/20 21 Active ammonium lactate (LAC-HYDRIN) 12 % lotion 09/04/20 21 Active clobetasol (TEMOVATE) 0.05 % cream Apply topically 2 (two) times a day 06/01/20 22 Active Diclofenac Sodium 1 % gel APPLY TO AFFECTED AREA TWICE A DAY 04/21/20 22 Active spironolactone (ALDACTONE) 50 MG tablet TAKE 0.5 TABLET BY MOUTH DAILY 45 tablet 3 03/07/20 25 Active spironolactone (Aldactone) 50 MG tablet Take 0.5 tablets (25 mg total) by mouth 1 (one) time each day 15 tablet 11 12/31/19 24 025 Discontinued Active Problems Problem Noted Date Diagnosed Date Proteinuria 02/24/2021 Anemia 02/24/2021 Fibromyalgia 01/05/2021 Vitamin D deficiency 11/29/2020 Encounters Date Type Department Care Team Description 03/07/2025 Refill [facility] [address] [place] [address] Heber Tang MD 01/14/2025 1:45 PM EDT Office [facility] [address] [place] [address] Heber Tang MD Other proteinuria (Primary Dx) 01/11/2025 Telephone [facility] [address] [place] [address] Patsy Saab MA 01/07/2025 Orders Only [facility] [address] [place] [address] Patsy Saab MA Chronic kidney disease, not [...] Visit [facility], [address] [place] [address] Heber Tang MD [address] [facility] [address] [facility] [place] [phone] Health Maintenance Due Date Last Done Comments Hepatitis B Vaccine (1 of 3 - 19+ 3-dose series) 1998 Pneumococcal Vaccine: Peds ( 0 to 5 Years) and At-Risk Patients (6 to 49 Years) (2 of 2 - PCV) 12/12/2019 12/11/2018 Influenza Vaccine (Season Ended) 2025 08/27/20 22, 12/11/2018 Procedures Procedure Name Priority Date/Time Associated Diagnosis Comments URINE ALBUMIN / CREATININE RATIO Routine 02/14/2025 6:00 AM EDT Other proteinuria URINALYSIS WITH MICROSCOPIC Routine 02/14/2025 6:00 AM EDT Other proteinuria MICROSCOPIC EXAMINATION - DO NOT USE Routine 02/14/2025 6:00 AM EDT from Last 3 Months Results * Microscopic Examination (02/14/2025 6:00 AM EDT) WBC, Urine None seen 0 - 5 /hpf [facility] RBC, Urine None seen 0 - 2 /hpf [facility] Squamous Epithelial, Urine None seen 0 - 10 /hpf [facility] Casts None seen None seen /lpf [facility] Bacteria, Urine None seen None seen/Few [facility] 02/14/2025 6:00 AM EDT 02/14/2025 Heber Tang MD LAB MICROBIOLOGY - GENERAL ORDERABLES Final Result [facility] [address] [place] [address] * (ABNORMAL) Urine Albumin / Creatinine Ratio (02/14/2025 6:00 AM EDT) Creatinine, Ur 20.0 Not Estab. mg/dL [facility] Albumin, Urine 75.8 Not Estab. ug/mL [facility] Albumin/Creatin ine Ratio 379(H) 0 - 29 mg/g creat [facility] Comment: ? Normal: ?0 - ??29 ? Moderately increased: 30 - 300 ? Severely increased: ? >300 Urine specimen (specimen) Urine specimen obtained by clean catch procedure / Unknown 02/14/2025 6:00 AM EDT 02/14/2025 Heber Tang MD LAB URINE ORDERABLES Final Result [facility] [address] [place] [address] * Urinalysis with microscopic (02/14/2025 6:00 AM EDT) Specific [place], Urine 1.008 1.005 - 1.030 [facility] [phone] pH Urine 6.5 5.0 - 7.5 [facility] Color, Urine Yellow Yellow [facility] Appearance Urine Clear Clear [facility] WBC Esterase Urine Negative Negative [facility] Protein, Ur Trace Negative/Tra ce [facility] [phone] Glucose, Ur Negative Negative [facility] [phone] Ketones, Urine Negative Negative [facility] Blood Urine Negative Negative [facility] [phone] Bilirubin Urine Negative Negative [facility] [phone] Urobilinogen Urine 0.2 0.2 - 1.0 mg/dL [facility] [phone] Nitrite, Urine Negative Negative [facility] [phone] Microscopic Examination Comment [facility] [phone] Comment:Microscopic follows if indicated. Other Microsc. Observations See below: [facility] [phone] Comment:Microscopic was isadora cated and was performed. Urine specimen (specimen) Urine specimen obtained by clean catch procedure / Unknown 02/14/2025 6:00 AM EDT 02/14/2025 Heber Tang MD LAB URINE ORDERABLES Final Result [facility] [address] [place] [address] from Last 3 Months Insurance Medicaid [place] Care Teams Solid Waste Manager Relationship Specialty Start Date End Date Yoan Sol FNP [address] [place] [address] PCP - General Nurse Practitioner 01/10/21
[2025-03-14] MEDS: iohexoL 350 MG/ML 100 ML INFUS..BTL IV (17:13)
== END 2025-03-14 15:19 | disposition home or self-care (01) ==
LOC: HO.CT 15:18
PROVIDERS: PCP Nurse Practitioner Family; Visit Provider Nurse Practitioner Family
DX: R31.0 Gross hematuria (principal)
CPT/HCPCS: 74178; Q9967

== ENCOUNTER → 2025-03-14 15:20 | Outpatient (BNV) | payer MEDICAID, SELFPAY | PROVIDERS: PCP Nurse Practitioner Family; Visit Provider Radiology Diagnostic Radiology | DX: R31.0 Gross hematuria (principal) | CPT/HCPCS: 74178 ==

== ENCOUNTER 2025-05-02 14:08 | Outpatient (AMB) | payer MEDICAID, SELFPAY ==
--- OUTSIDE RECORDS SUMMARY | 2025-05-02 14:17 | XMS_ITS | Clinical Summary ---
Author Organization [facility] Address [address] [place] [address] Care Team Providers Care Attorney Name Role Phone Yoan Sol [facility] Primary Care Prov ider Source Comments PLEASE [...] Cough 02/05/2021 Medications acetaminophen (TYLENOL) 500 mg tabletIndications :Apical periodontitis Take 1 Tablet by mouth every 6 (six) hours as needed for pain 60 Tablet 2 022 Active zolpidem (AMBIEN) 10 mg tablet TAKE 1 TABLET BY MOUTH EVERY DAY AT BEDTIME NEEDED 023 Active traZODone (DESYREL) 100 mg tablet TAKE 1 TABLET BY MOUTH EVERYDAY AT BEDTIME 023 Active DULoxetine (CYMBALTA) [address] capsule TAKE 1 CAPSULE BY MOUTH AFTER BREAKFAST 023 Active celecoxib (CELEBREX) 200 mg capsuleIndication s:Bilateral hand swelling Take 1 Capsule by mouth 2 (two) times daily 180 Capsule 024 Active spironolactone (ALDACTONE) 50 mg tablet Take 25 mg by mouth 024 Active amitriptyline (ELAVIL) 25 mg tablet Take 25 mg by mouth nightly at bedtime as needed for pain 024 Active topiramate (TOPAMAX) 50 mg tablet Take 50 mg by mouth 2 (two) times daily as needed 023 Active nicotine (NICODERM, STEP 3) 7 mg/24 hr patchIndications: Tobacco use Place 1 Patch onto the skin once daily (every 24 hours) 14 Patch 024 Active nicotine (NICODERM, STEP 2) 14 mg/24 hr patchIndications: Tobacco use Place 1 Patch onto the skin once daily (every 24 hours) 14 Patch 024 Active nicotine (NICODERM, STEP 1) 21 mg/24 hr patchIndications: Tobacco use Place 1 Patch onto the skin once daily (every 24 hours) 42 Patch 024 Active MISCELLANEOUS MEDICAL SUPPLY MISC Knee high compression stockings 15-20mm Hg to be used daily x 99 years dispense 2 pairs 3 Each 024 Active MISCELLANEOUS MEDICAL SUPPLY MISCIndications:B ilateral carpal tunnel syndrome Bilateral wrist brace DXcarpal tunnel 2 Each 024 Active ondansetron ODT (ZOFRAN-ODT) 4 mg disintegrating tablet DISSOLVE 1 TABLET IN MOUTH EVERY 8 HOURS NEEDED FOR NAUSEA/VOMITIN G FOR UP TO 10 DAYS Authorized by: DAMARIS CAMPBELL 024 Active lidocaine (LIDODERM) 5 % patch APPLY 1 PATCH DAILY X14 DAYS REMOVE PATCHES AFTER 12 HOURS Authorized by: DAMARIS CAMPBELL 024 Active fluocinonide (LIDEX) 0.05 % cream APPLY TO HANDS TWICE A DAY NEEDED DECREASE SYMPTOMS IMPROVE 15 g 1 024 Active mupirocin (BACTROBAN) 2 % ointmentIndicatio ns:Skin infection Apply 1 Application topically 3 (three) times daily 22 g 024 Active ergocalciferol (VITAMIN D-2) 1,250 mcg (50,000 unit) capsule Take 1 Capsule by mouth once a week 12 Capsule 3 025 Active meloxicam (MOBIC) 15 mg tablet TAKE 1 TABLET BY MOUTH EVERY DAY WITH FOOD NEEDED for pain 30 Tablet 4 025 Active gabapentin (NEURONTIN) 300 mg capsuleIndication s:Bilateral carpal tunnel syndrome,Left sided sciatica Take 1 Capsule by mouth 2 (two) times daily 180 Capsule 1 025 Active cyclobenzaprine (FLEXERIL) 10 mg tablet TAKE 1 TABLET BY MOUTH THREE TIMES A DAY 30 Tablet 1 025 Active MENSTRUAL RELIEF 500-60-15 mg tab TAKE 1 TABLET BY MOUTH EVERY 6 HOURS NEEDED 30 Tablet 1 025 Active pantoprazole (PROTONIX) 40 mg EC tablet TAKE 1 TABLET BY MOUTH EVERY DAY 90 Tablet Active doxycycline (VIBRA-TABS) 100 mg tabletIndications :Hidradenitis axillaris TAKE 1 TABLET BY MOUTH TWICE A DAY FOR ONE WEEK AND THEN ONCE DAILY THEREAFTER 60 Tablet 1 025 Active doxycycline (VIBRA-TABS) 100 mg tabletIndications :Hidradenitis axillaris TAKE 1 TABLET BY MOUTH TWICE A DAY FOR ONE WEEK AND THEN ONCE DAILY THEREAFTER 60 Tablet 1 025 2024 Discontinued pantoprazole (PROTONIX) 40 mg EC tablet Take 1 Tablet by mouth once daily 90 Tablet 025 2024 Discontinued Active Problems Problem Noted Date Diagnosed [...] (BMI) of 40.0 to 44.9 in adult ([facility]) 02/03/2024 Tobacco use 02/03/2024 Abnormal mammogram 11/12/2022 Overview (11/12/2022): [facility] Hyperlipidemia 11/12/2022 Bilateral carpal tunnel syndrome 01/28/2022 Overview (01/28/2022): [facility] 01/07/22 This is an abnormal EMG. This [...] Encounters Date Type Department Care Team Description 04/07/2025 2:30 PM EDT Office Visit [address] [phone] Chemical Lab Technician, Bu 03/22/2025 4:00 PM EDT Office Visit [address] [address] Liss Sandoval, DDS 03/03/2025 3:00 PM EDT Office Visit [address] [phone] Corina Miller, DMD 02/17/2025 4:20 PM EDT Office Visit [facility] [address] [place] [address] Formisano, Marifer, DO Alqaisy, Rufaida from Last 3 Months Immunizations Immunization Administration [...] e alcohol) Social Connections Answer Date Recorded How often do you feel lonely or isolated from th ose around you? 1 11/10/2024 Financial Resource Strain Answer Date R ecorded How hard is it for you to pa y for the very basics like food, housing, heating, medical care, and medications? 1 11/10 Stress Answer Date Recorded Do you feel these kinds of stress these days? 1 11/10/2024 Physical Activity Answer Date Recorded Physical Activity 0 05/22/2019 Food Insecurity Answer Date Recorded Within the past 12 months, t he food you bought just didn't last and you didn't have enough money to get more. 1 11/10/19 Transportation Needs Answer Date Record ed In the past 12 months, has l ack of transportation kept you from medical appointments, meetings, work or from getting things needed for daily living? (Check all that apply) 1 2024 Housing Stability Answer Date Recorded What is your housing situation today? 1 11/10/2024 Safety and Environment Answer Date Wan rded Safety 1 02/03/2024 Utilities Answer Date Recorded In the past 12 months has th e electric, gas, oil, or water company threatened to shut off services in your home? 1 11/10/2024 Employment Answer Date Recorded Employment 0 05/22/2019 Comments No Sex and Gender Information Value Date Recorded Sex Assigned at Female 08/18/2017 10:06 AM PST Legal Sex Female 11:36 AM PDT Gender Identity Female 08/18/2017 10:06 AM PST Sexual Orientation Don't know 08/18/2017 10 :06 AM PST Last Filed Vital Signs Vital Sign Reading Time Taken Comments Blood Pressure 122/85 03/03/2025 3:35 PM EDT Pulse 91 03/03/2025 3:35 PM EDT Temperature 36.6 C (97.9 F) 10/26/2024 2:12 PM EST Respiratory Rate 16 02/17/2025 4:09 PM EDT Oxygen Saturation 98% 02/17/2025 4:09 PM EDT Inhaled Oxygen Concentration - - Weight 93 kg (205 lb) 02/17/2025 4:09 PM EDT Height 149.9 cm (4' 11 ) 02/17/2025 4:09 PM EDT Body Mass Index 41.4 02/17/2025 4:09 PM EDT Plan of Treatment Upcoming Encounters Date Type Department Care Team (Late st Contact Info) Description 05/18/2025 1:00 PM EDT Office Visit [facility] [address] [place] [address] Chemical Lab Technician, Bu [address] [place] [address] 06/15/2025 1:40 PM EDT Office Visit [facility] [address] [place] [address] Corina Miller, DMD [address] [place] [address] Health Maintenance Due Date Last Done Comments HPV Screening 1979 Imm-Hepatitis B (1 of 3 - 19 + 3-dose series) 1998 Imm-Pneumococcal (2 of 2 - PCV) 12/12/2019 9 Breast Cancer Screening (Mammogram) 03/18/2023 09/17/2022, 09/17/2022, 09/17/2022, Additional history exists CT Colonography 01/10/2024 Colonoscopy 01/10/2024 Colorectal Cancer Screening 01/10/2024 FIT/gFOBT 01/10/2024 Fecal DNA 01/10/2024 Flexible Sigmoidoscopy 01/10/2024 [id number] ( season) 2024 022, 08/17/2021 Annual Wellness (Adult): Indicated (All Coverage) 02/02/2025 02/03/2024, 08/27/2022, 01/05/2021, Additional history exists Relationship Safety Screening/Counseling 02/02/2025 02/03/2024, 01/28/2022, 11/27/2020 Tobacco Cessation Counseling (#1) 03/19/2025 08/27/2022, 01/28/2022, 08/08/2021, Additional history exists Imm-Influenza (#1) 2025 08/27/2022, 0 12/11/2018, 07/06/2013, Additional history exists Anxiety Screening 10/26/2025 10/26/2024 Diabetes Screening 10/26/2025 10/26/2024, 0 02/03/2024, 02/03/2024, Additional history exists Dental BW 01/20/2026 01/18/2025, 01/28, 08/20/2022, Additional history exists Dental Examination 01/20/2026 01/18/2025, 0 02/18/2023, 08/20/2022, Additional history exists Dental Perio Charting 01/20/2026 01/18/2025, 023 Dental Prophy 01/20/2026 01/18/2025, 01/28, 08/20/2022, Additional history exists Hypertension Screening (#1) 03/03/2026 Imm-DTaP/Tdap/Td (4 - Td or Tdap) 03/15/2026 [...] Procedure Name Priority Date/Time Associated Diagnosis Comments PRIMARY IMPRESSION - RPD Routine 04/07/2025 2:30 PM EDT Partial edentulism, class II CASE PRESENTATION SUBS DTL & EXTENSIVE TX PLN Routine 03/22/2025 4:00 PM EDT Caries 6 DL RESIN-BASED COMPOSITE TWO SURFACES ANTERIOR Routine 03/22/2025 4:00 PM EDT Caries DENTAL CONSULTATION Routine 03/03/2025 3 :00 PM EDT Caries of dentin COMP PERIODONTAL EVALUATION - NEW/EST PATIENT Routine 01/18/2025 3:40 PM EDT Caries Encounter for dental examination INTRAORAL - COMP SERIES OF RADIOGRAPHIC IMAGES Routine 01/18/2025 3:40 PM EDT Caries Encounter for dental examination PROPHYLAXIS - ADULT Routine 01/18/2025 3 :40 PM EDT Caries Encounter for dental examination PERIODIC ORAL EVALUATION ESTABLISHED PATIENT Routine 01/18/2025 3:40 PM EDT Caries Encounter for dental examination HEMOGLOBIN GLYCOSYLATED A1C Routine 10/26/2024 3:10 PM [...] Recently Relevant to Health Maintenance Results * (ABNORMAL) HEMOGLOBIN GLYCOSYLATED A1C (10/26/2024 3:10 PM EST) HEMOGLOBIN A1C 5.9(H) <5.7 % of total Hgb [facility] Comment: For someone without known diabetes, a [...] PM EST 10/26/2024 3:10 PM EST Narrative [facility] - 10/27/2024 3:09 AM EST PATIENT UNABLE TO VOID; ADVISED TO RETURN FOR COLLECTION. Yoan Dineroncourt [facility] - BLOOD DRAW F inal Result Press [facility] [address] [address], Press [facility] [address] [place] [address] * (ABNORMAL) LIPID PANEL (02/03/2024 2:19 PM EDT) CHOLESTEROL, TOTAL 219(H) <200 mg/dL [facility] HDL CHOLESTEROL 38(L) > OR = 50 mg/dL [facility] TRIGLYCERIDES 217(H) <150 mg/dL [facility] Comment: If a non-fasting specimen was collected, consider repeat triglyceride testing on a fasting specimen if clinically indicated. Gerard et al. J. of Clin. Lipidol. 2015;9:129-169. LDL-CHOLESTEROL 145(H) 99 mg/dL (calc) [facility] Comment: Reference range: <100 Desirable range <100 mg/dL for primary prevention; <70 mg/dL for patients with CHD or diabetic patients with > or = 2 CHD risk factors. LDL-C is now calculated using the Chin-Pickard calculation, which is a validated novel method providing better accuracy than the Friedewald equation in the estimation of LDL-C. Chin SS et al. JORGE. 2013;310(19): 0262-5514 (http://education.[employer]/faq/QLO261) CHOL/HDLC RATIO 5.8(H) <5.0 (calc) [facility] NON-HDL CHOLESTEROL 181(H) <130 mg/dL (calc) [facility] Comment: For patients with diabetes plus 1 major ASCVD risk factor, treating to a non-HDL-C goal of <100 mg/dL (LDL-C of <70 mg/dL) is considered a therapeutic option. Blood Blood / Unknown 02/03/2024 2 :19 PM EDT 02/03/2024 2:20 PM EDT us [facility]an [facility] - BLOOD DRAW F inal Result [facility] [address] [place] [address], Press [place] [facility] [address] [place] [phone] * (ABNORMAL) REFERRAL FOR MAMMOGRAM SCREENING (09/17/2022 3:00 AM EST) 09/17/2022 3:00 AM EST us Yoan [facility] IMG RFL MAMMO Ed ited Result - Final * THIN PREP IMAGE PAP + HPV RNA E6/E7 W/RFLX HPV 16, 18/45 (03/20/2021 2:42 PM EDT) CLINICAL INFORMATION See Note [facility] Comment:Routine exam LMP See Note [facility] Comment:[id number] PREV. PAP [facility] PREV. BX See Note [facility] Comment:NONE GIVEN SOURCE See Note [facility] Comment:Cervix STATEMENT OF ADEQUACY See Note [facility] Comment: Satisfactory for evaluation. Endocervical/transformation zone component absent. INTERPRETATION/RESU LT See Note [facility] Comment:Negative for intraep ithelial lesion or malignancy. INFECTION See Note [facility] Comment: Shift in vaginal maricel suggestive of bacterial vaginosis. COMMENT See Note [facility] Comment: This Pap test has been evaluated with computer assisted technology. LEAD SYSTEMS ARCHITECT See Note [facility] Project Manager Comment: BLC,CT(ASCP) CT screening location: [facility] [address] [address] COMMENT [facility] HPV MRNA E6/E7 Not Detected Not Detected [facility] Comment: Methodology: Lodging Manager-Mediated Amplification This assay detects E6/E7 viral messenger RNA (mRNA) from 14 high-risk HPV types (16,18,31,33,35,39,45,51,52,56,58,59,66,68). The analytical performance characteristics of this assay have been determined by [employer]. The modifications have not been cleared or approved by the FDA. This assay has been validated pursuant to the CLIA regulations and is used for clinical purposes. For additional information, please refer to http://education.[employer]/faq/QOI080i2 (This link if provided for information/ educational purposes only.) Cervix Cervix uteri structure / Unknown 03/20/2021 2:42 PM EDT 03/21/2021 3:20 AM EDT Narrative [facility] - 03/21/2021 7:19 PM EDT EXPLANATORY NOTE: [...] historic and current clinical information. Shabana Inman [facility] - PATHOLOGY AND CYTOLOGY AMBULATORY Edited Result - Final [facility] [address] [address], Press [address] [address] * HEPATITIS C ANTIBODY (11/28/2020 2:01 PM EST) HEPATITIS C VIRUS SCREEN NEGATIVE NEGATIVE [facility] Blood Blood / Unknown 11/28/2020 2 :01 PM EST 11/28/2020 6:53 PM EST Narrative [facility] - 11/28/2020 8:33 PM EST [employer], a member of [address] [address] Emergency Communications Operator [place] [id number] ORD# [id number] Yoan [facility] - BLOOD DRAW E dited Result - Final [facility] [employer] [address], * HIV-1 & HIV-2 ANTIBODIES (11/28/2020 2:01 PM EST) [facility] Signature HIV 1 AND 2 ANTIBODY SCREEN NEGATIVE NEGATIVE [facility] [employer] [facility] Comment: This assay is a 4th generation assay allowing for earlier detection of HIV infection by detecting the presence of the HIV-1 p24 antigen as well as the traditional antibodies to HIV type 1 (including group O) and type 2. Use of a 4th generation assay is the current CDC recommendation for HIV screening. Blood Blood / Unknown 11/28/2020 2 :01 PM EST 11/28/2020 6:53 PM EST Narrative [facility] - 11/28/2020 8:34 PM EST [employer] [address] Emergency Communications Operator [place] [id number] ORD# [id number] Yoan Sol [facility] LAB - BLOOD DRAW E dited Result - Final [address] [address], from Last 3 Months or Most Recently Relevant to Health Maintenance Insurance [place] DENT[place] [employer] S[employer] [place] [address] ACO Care Teams Attorney Relationship Specialty Start Date End Date Yoan Sol FNP [address] [place] [address] PCP - General Family Medicine, SPECIAL EDUCATION CURRICULUM SPECIALIST 01/05/21
--- OUTSIDE RECORDS SUMMARY | 2025-05-02 14:17 | XMS_ITS | Clinical Summary ---
Author Organization [facility], Address [address] [place] [address] [place] [address] Phone Care Team Providers Care Technical Recruiter Name Role Phone Yoan Sol SOFTWARE QUALITY ASSURANCE ENGINEER Primary Care Provider [phone] Allergies Active Allergy Reactions Criticality Noted Date [...] AREA TWICE A DAY 2 Active spironolactone (ALDACTONE) 50 MG tablet TAKE 0.5 TABLET BY MOUTH DAILY 45 tablet 3 5 Active Active Problems Problem Noted Date Diagnosed Date Proteinuria 02/24/2021 Anemia 02/24/2021 Fibromyalgia 01/05/2021 Vitamin D deficiency 11/29/2020 Encounters Date Type Department Care Team Description 03/07/2025 Refill [facility] [address] [place] [phone] Heber Tang MD from Last 3 Months Immunizations Immunization Administration [...] Visit [facility], [address] [place] [phone] Heber Tang MD [address] [place] [address] [place] [address] Health Maintenance Due Date Last Done Comments Hepatitis B Vaccine (1 of 3 - 19+ 3-dose series) 1998 Pneumococcal Vaccine: Peds ( 0 to 5 Years) and At-Risk Patients (6 to 49 Years) (2 of 2 - PCV) 12/12/2019 12/11/2018 Influenza Vaccine (#1) 2025 08/27/2022, 2018 Procedures Procedure Name Priority Date/Time Associated Diagnosis Comments URINE ALBUMIN / CREATININE RATIO Routine 02/14/2025 6:00 AM EDT Other proteinuria URINALYSIS WITH MICROSCOPIC Routine 02/14/2025 6:00 AM EDT Other proteinuria MICROSCOPIC EXAMINATION - DO NOT USE Routine 02/14/2025 6:00 AM EDT from Last 3 Months Results * Microscopic Examination (02/14/2025 6:00 AM EDT) WBC, Urine None seen 0 - 5 /hpf [facility] RBC, Urine None seen 0 - 2 /hpf [facility] Squamous Epithelial, Urine None seen 0 - 10 /hpf [facility] Casts None seen None seen /lpf [facility] Bacteria, Urine None seen None seen/Few [facility] 02/14/2025 6:00 AM EDT 02/14/2025 Heber Tang MD LAB MICROBIOLOGY - GENERAL ORDERABLES Final Result [facility] [address] [place] [address] * (ABNORMAL) Urine Albumin / Creatinine Ratio (02/14/2025 6:00 AM EDT) Creatinine, Ur 20.0 Not Estab. mg/dL [facility] Albumin, Urine 75.8 Not Estab. ug/mL [facility] Albumin/Creatin ine Ratio 379(H) 0 - 29 mg/g creat [facility] Comment: Normal: 0 - 29 Moderately increased: 30 - 300 Severely increased: >300 Urine specimen (specimen) Urine specimen obtained by clean catch procedure / Unknown 02/14/2025 6:00 AM EDT 02/14/2025 Heber Tang MD LAB URINE ORDERABLES Final Result [facility] [address] [place] [address] * Urinalysis with microscopic (02/14/2025 6:00 AM EDT) Specific [place], Urine 1.008 1.005 - 1.030 [facility] pH Urine 6.5 5.0 - 7.5 [facility] Color, Urine Yellow Yellow [facility] Appearance Urine Clear Clear [facility] [phone] WBC Esterase Urine Negative Negative [facility] [phone] Protein, Ur Trace Negative/Tra ce [facility] Glucose, Ur Negative Negative [facility] Ketones, Urine Negative Negative [facility] Blood Urine Negative Negative [facility] Bilirubin Urine Negative Negative [facility] Urobilinogen Urine 0.2 0.2 - 1.0 mg/dL [facility] Nitrite, Urine Negative Negative [facility] Microscopic Examination Comment [facility] Comment:Microscopic follows if indicated. Other Microsc. Observations See below: [facility] Comment:Microscopic was isadora cated and was performed. Urine specimen (specimen) Urine specimen obtained by clean catch procedure / Unknown 02/14/2025 6:00 AM EDT 02/14/2025 us Heber Tang MD LAB URINE ORDERABLES Final Result [facility] [address] [place] [address] from Last 3 Months Insurance Medicaid [place] Care Teams Technical Recruiter Relationship Specialty Start Date End Date Yoan Sol FNP [address] [place] [address] PCP - General Nurse Practitioner 01/10/21
--- NOTE | 2025-05-02 14:35 | MHC.OFFVIS ---
Intake Visit Reasons: 3M follow up/ CT/Labs/ cysto Intake Note: Patient presents today for 3m follow up/CT/Labs/cystoscopy Urology Medication:None Blood Thinner:None Antibiotic Allergies:None Analog Circuit Designer Required: Yes Analog Circuit Designer Services: Analog Circuit Designer Present Allergies No Known Allergies Allergy (Verified 05/02/25 14:42) Medication List - Last Reconciled 05/02/25 by Gonzalez Elias MD meloxicam 15 mg PO DAILY PRN pantoprazole 40 mg PO DAILY spironolactone 25 mg PO DAILY zolpidem 10 mg PO BEDTIME PRN HPI Comments Details: 05/02/25--the patient is a 45-year-old female who Kinyarwanda speaking who is here with her , she was seen initially by the nurse practitioner on 01/27/2025 new patient evaluation for microscopic hematuria. She is status post CT urogram which was reviewed urinary tract was within normal limits. Urine cytology sent came back negative for malignant cells. The patient has a significant history of tobacco use. Here for office cystoscopy. History of Present Illness - The patient is a 45-year-old female presenting with microscopic hematuria. - Initially evaluated by a nurse practitioner on January 27, 2025, for microscopic hematuria. - CT urogram showed normal urinary tract findings; urine cytology was negative for malignant cells. - Significant history of tobacco use noted. Results - CT urogram: Normal urinary tract findings - Urine cytology: Negative for malignant cells - Cystoscopy: Normal bladder appearance with slightly prominent blood vessels, no masses Plan - Follow-up with Nurse practitioner, monitor urine in 10 months due to the history of tobacco use. 01/27/25--Hend this is a very pleasant 45-year-old Kinyarwanda speaking female patient of Dr. Sol who was accompanied by her at today's office visit. She has a past medical history of fibromyalgia, vitamin-D deficiency, and hidradenitis axillars. She presents to the office today as a new patient for microscopic hematuria in the setting of nicotine dependence. In discussion with the patient today she reports having followed up with her PCP at which time recommendations were made for urology referral for further assessment evaluation. In office urinalysis results reviewed with the patient today 2+ microscopic hematuria as well as proteinuria. She does report following up with Nephrology Dr. Craig. When asked she does report a 23 year history of nicotine dependence. She reports typically smoking half a pack daily. We discussed potential causes of microscopic hematuria as well as further workup to include imaging and cystoscopy. She otherwise denies any bothersome urinary issues. She denies urinary urgency, urinary frequency, incontinence, nocturia, hematuria, dysuria, foul smelling urine, changes to urinary stream, flank pain, fever, and or chills. She is happy with her current voiding parameters. In review of patient's chart it appears patient had CT 03/22 however noncontrasted study therefore will order CT urogram for further assessment evaluation. I discussed reasons for blood in the urine may include but are not limited to kidney stones, cancer in the urinary tract, kidney stone disease or inflammatory conditions of the urinary tract. I have discussed workup to include cystoscopy evaluation. All questions were answered. She otherwise offers no other issues or concerns at this time. [facility] Medical History Fibromyalgia Vitamin D deficiency Hidradenitis axillaris Surgical History History of 3 sections Social History Alcohol intake: never Patient Tobacco Use Status: Current everyday Tobacco user Review of Systems Const All systems reviewed & are unremarkable except as noted in HPI and below Reports no additional complaints Eyes Reports no additional complaints ENT Reports no additional complaints Card Reports no additional complaints Resp Reports no additional complaints GI Reports no additional complaints Reports as per HPI Musc Reports no additional complaints Skin/Breast Reports system reviewed and no additional complaints, except as documented Neuro Reports no additional complaints Psych Reports no additional complaints Endo Reports no additional complaints Asher/Lymph Reports no additional complaints Aller/Immun Reports no additional complaints Office Procedures Cystoscopy Consent Discussed risk and benefit or proposed procedure with the patient. Information consent for procedure given to the patient. Discussed technical aspects, risks, benefits and alternatives in full. Addressed all of the patient's questions and concerns regarding the procedure. The patient demonstrated knowledge and understanding. They wish to proceed with this procedure. Preparation The patient was prepped in the usual manner. A data warehouse analyst was present and in the room. Genitalia was prepped with betadine solution in a sterile manner. Lidocaine Jelly 2% was placed into the urethra and 16Fr flexible Olympus cystoscope was inserted into the meatus after adequate lubrication. Procedure Time out per protocol performed. Speculum used as indicated for adequate visualization of urethra, the flexible cystoscope is passed transurethrally: The bladder was inspected in its entirety with utilization retroflexion displaying: Tumor(s): no suspicious bladder lesions visualized Trabeculation: Mild Mucosal Erthema: Orifices: normal shape and position Urethra: normal Cystoscopy findings: Normal bladder appearance with slightly prominent blood vessels, no suspicious bladder lesions visualized [id number] DISPOSABLE SCOPE URO-G FLEXIBLE SCOPE Procedure code (CPT) selection complete Office Meds lidocaine HCl 2 % mucosal jelly in applicator Performing Provider: Gonzalez Elias MD [facility] Administered by: Sandip Ritter LPN on 05/02/25 15:19 Dose Route Admin Location Dispensed Lot Number Expiration Date ND Whizzer Hand 10 mL intra-urethral 20 mL ciprofloxacin HCl 500 mg tablet Performing Provider: Gonzalez Elias MD Performing [facility] Administered by: Sandip Ritter LPN on 05/02/25 15:19 Dose Route Admin Location Dispensed Lot Number Expiration Date ND Whizzer Hand 500 mg PO 1 tab naproxen 500 mg tablet Performing Provider: Gonzalez Elias MD Performing Location: [facility] Administered by: Sandip Ritter LPN on 05/02/25 15:19 Dose Route Admin Location Dispensed Lot Number Expiration Date ND Whizzer Hand 500 mg PO 1 tab Results Reviewed Results Reviewed: Date of Service: 03/14/25 EXAMINATION: CT ABDOMEN AND PELVIS WITHOUT AND WITH CONTRAST CLINICAL INFORMATION: Gross hematuria DLP: 1041 mGY*cm COMPARISON: February 28, 2024 TECHNIQUE: Noncontrast CT of the abdomen and pelvis is performed followed by split bolus contrast-enhanced images using 85 mL Omnipaque 350 contrast. Postcontrast imaging is performed during the combined nephrogram and excretion phase. Sagittal and coronal reformatted images were obtained on the technologist's workstation for both the precontrast and postcontrast phases. This CT examination was performed using dose optimization techniques as appropriate, variously including the following: *Automated exposure control *Adjustment of mA and/or kV according to patient size (this includes techniques or standardized protocols for targeted exams where dose is matched to indication/reason for exam; i.e. extremities or head) *Use of iterative reconstruction technique FINDINGS: LUNG BASES: The visualized lung bases are unremarkable. LIVER, GALLBLADDER, AND BILIARY TREE: Mild fatty changes are present. Gallbladder is surgically absent. There are cholecystectomy clips. PANCREAS: Unremarkable. SPLEEN: Unremarkable. ADRENAL GLANDS: Unremarkable. KIDNEYS AND URETERS: The kidneys are normal in size, shape, and attenuation. No hydronephrosis, hydroureter, or calculi seen. No perinephric stranding. There is symmetric concentration and excretion of contrast from both kidneys and ureters. BLADDER: Contrast is visualized in the bladder. GASTROINTESTINAL TRACT: The small and large bowel are unremarkable. The appendix is unremarkable. ABDOMINAL WALL: Fat-containing umbilical hernia is present. LYMPH NODES: Normal. VASCULAR: Minimal atherosclerotic calcification is noted in the distal abdominal aorta, common iliac and common femoral arteries. PELVIC VISCERA: There is no residual unremarkable. OSSEUS STRUCTURES: Unremarkable. IMPRESSION: Unremarkable CT urogram. Collected: 01/27/25 [facility] Received: 01/28/25 Diagnosis Urine: Negative for high-grade urothelial carcinoma. See comment. COMMENT: Low specimen cellularity. Rare degenerated urothelial cells, squamous cells, red blood cells, mixed inflammatory cells and yeast. Clinical History Encounter for screening, unspecified Material Received Urine Gross Description Received is 45 cc of cloudy yellow fluid from which a ThinPrep slide is prepared. Assessment & Plan Assessment & Plan (1) Microscopic hematuria: Code(s): R31.29 - Other microscopic hematuria Category: Medical (2) Nicotine dependence: Code(s): F17.200 - Nicotine dependence, unspecified, uncomplicated Category: Medical Plan - Follow-up with Nurse practitioner, monitor urine in 10 months due to the history of tobacco use. Orders: Orders AMB Cystoscopy 05/02/25 R31.29 - Other microscopic hematuria Patient Instructions: The patient had an opportunity to ask questions regarding treatment plan. The patient expressed understanding and agreement with the above treatment plan. The patient is aware they should contact our office by phone for worsening of their current condition or the appearance of new symptoms. Compliance is encouraged with any medications and followup testing that is ordered. It is a privilege to be allowed the opportunity to participate in the urologic care of your patient. If you have any questions or concerns regarding treatment for the above conditions please do not hesitate to contact me. The office telephone contact is [phone]. This note is constructed in part using voice recognition software. While every effort has been made to ensure accuracy em physician errors may have been included. Yours sincerely, Gonzalez Elias MD Scribe Plan - Not visible on output: Patient was informed and verbally consented to the use of an ambient scribe for clinic note documentation during this visit. Coding Level of Care Code Procedure Only Diagnoses Microscopic hematuria R31.29 Nicotine dependence F17.200 CPT Codes Cystoscopy - CPT: 48586-[id number] ([id number])
== END 2025-05-02 15:45 | disposition home or self-care (01) ==
LOC: HO.HUSH 14:08
PROVIDERS: PCP Nurse Practitioner Family; Visit Provider Urology
DX: R31.29 Other microscopic hematuria (principal)
CPT/HCPCS: 52000

== ENCOUNTER → 2025-05-02 14:08 | Outpatient (BNVA) | payer MEDICAID, SELFPAY | PROVIDERS: PCP Nurse Practitioner Family; Visit Provider Urology | DX: R31.29 Other microscopic hematuria (principal) | CPT/HCPCS: 52000 ==

== ENCOUNTER 2025-09-13 15:16 | Outpatient (AMB) | payer MEDICAID, SELFPAY ==
--- NOTE | 2025-09-13 15:23 | MHC.OFFVIS ---
Vital Signs 09/13/25 15:31 Height 4 ft 11.45 in Weight 211 lb 6 oz BMI 42.0 BP 141/72 H Blood Pressure Location Lt brachial Position Sitting Pulse 86 Intake Visit Reasons: skin lesion arm Intake Note: Patient is seen in office to re-discuss removal of right arm lesion. Pt c/o: lump has increase in size, painful, got infected in 06/2025 and was given abx, discharge, currently not infected, but would like removal Room Service Waiter Required: Yes Room Service Waiter Language: German Room Service Waiter Services: Room Service Waiter Offered & Declined ( (Freda)) Accompanied by: Self / Same As Patient Allergies No Known Allergies Allergy (Verified 09/13/25 15:31) Medication List - Last Reconciled 09/13/25 by Braeden Powell MD acetaminophen 500 mg PO Q6H PRN amitriptyline 25 mg PO BEDTIME celecoxib 200 mg PO DAILY cyclobenzaprine 10 mg PO TID doxycycline hyclate mg PO duloxetine 120 mg PO QAM ergocalciferol (vitamin D2) 1,250 mcg PO QWEEK fluocinonide 0.05% appl topical BID PRN gabapentin 300 mg PO BID meloxicam 15 mg PO DAILY PRN mupirocin 2% topical BID nicotine 1 patch transdermal Q24H ondansetron 4 mg PO Q8H pantoprazole 40 mg PO DAILY spironolactone 25 mg PO DAILY trazodone 100 mg PO BEDTIME zolpidem 10 mg PO BEDTIME PRN HPI Comments Details: 45-year-old female patient returning along to rediscuss excision of the hidradenitis of her right axilla. She was previously evaluated and arrangements made for an excision of the hidradenitis however she subsequently developed acute cholecystitis and required a laparoscopic cholecystectomy, therefore the surgery was canceled. She returns today having had several recurrences of the infection in the right axilla most recently in June wants to cold weather began. She had multiple areas of pain and discharge and was subsequently placed on antibiotics. She reports now that the lesion has decreased in size in his relatively asymptomatic. She would like to have the hidradenitis excised before recurrence and becomes infected once again. She denies any current fever or chills. [facility] Medical History Fibromyalgia Vitamin D deficiency Hidradenitis axillaris Surgical History History of 3 sections Social History Alcohol intake: never Patient Tobacco Use Status: Current everyday Tobacco user Review of Systems Const All systems reviewed & are unremarkable except as noted in HPI and below Physical Exam Vital Signs: Last Vital Signs Pulse 86 09/13/25 15:31 BP 141/72 H 09/13/25 15:31 BMI result Body Mass Index 42.0 Const General: cooperative and no acute distress Nutritional Appearance: well nourished Orientation/consciousness: patient oriented x3 Limitations: no limitations HEENT Head: Yes normocephalic and Yes atraumatic Ears: hearing grossly normal bilaterally Chest Other: Right axilla with an area measuring approximately 2 by 4 cm of hidradenitis with chronic scarring but no evidence of acute abscess at this time. Site is tender to palpation. Several open sinuses are identified, located mainly in the anterior axilla. Chest/axillae images:  1. 4 x 1 cm area of hidradenitis, right axilla Resp Effort & Inspection: normal respiratory effort, no audible wheezes, no cough and no respiratory distress Cardio Jugular venous distension: no JVD GI Inspection: Yes normal to inspection Skin Other: Warm, dry, no rash Neuro General: patient oriented x3 Extrem Other: Swelling in right hand with slight erythema when compared to the left hand. Assessment & Plan Assessment & Plan (1) Hidradenitis axillaris: Code(s): L73.2 - Hidradenitis suppurativa Category: Medical Plan We discussed wide excision of this area of hidradenitis to help reduce the chances of recurrence. She understands that there are other areas that can develop hidradenitis in the future in the this procedure could not prevent all chances of hidradenitis. After a review of the procedure, risks, and alternatives, she consents to a wide excision of the right axillary hidradenitis. This will be scheduled as a short-stay surgery. Orders: Referrals General Surgery Procedure Notification L73.2 - Hidradenitis suppurativa Coding Level of Care Code Est Pt Level 4 (76737) Diagnoses Hidradenitis axillaris L73.2
[2025-09-13 15:31] VITALS: BP 141/72; PULSE 86; BMI 42.0
== END 2025-09-13 15:49 | disposition home or self-care (01) ==
LOC: HO.HGS 15:16
PROVIDERS: PCP Nurse Practitioner Family; Visit Provider Surgery
DX: L73.2 Hidradenitis suppurativa (principal)
CPT/HCPCS: 99214

== ENCOUNTER → 2025-09-13 15:16 | Outpatient (BNVA) | payer MEDICAID, SELFPAY | PROVIDERS: PCP Nurse Practitioner Family; Visit Provider Surgery | DX: L73.2 Hidradenitis suppurativa (principal) | CPT/HCPCS: 99212 ==